=== PATIENT | female | born 1940 | race Caucasian/White ===

== ENCOUNTER → 2016-09-24 | Outpatient (CLI) | payer MEDICARE, BC ==
--- NOTE | 2016-09-24 11:59 | RADRPT ---
PROCEDURE: XR pelvis/right hip. CLINICAL INDICATION: Hip pain TECHNIQUE: AP pelvis/lateral right hip view available for review. COMPARISON: None available FINDINGS: The osseous structures are normal in mineralization, architecture and alignment. No fractures are i dentified. No osseous lesions are identified. The joints are unremarkable. The soft tissues are u nremarkable. There are surgical clips in the pelvis. IMPRESSION: Unremarkable examination RPTAT: HGDB .Edgar Monae MD, MD Date Time Electronically viewed and signed by .Edgar Monae MD, on 09/24/2016 11:58 .B/
--- NOTE | 2016-09-24 12:09 | RADRPT ---
PROCEDURE: XR bilateral knees. CLINICAL INDICATION: Knee pain TECHNIQUE: AP weightbearing, PA weightbearing, lateral weightbearing and sunrise views of each kne e are available for review. COMPARISON: None available FINDINGS: Right knee: There is moderate to severe osteoarthrosis involving the right medial tibial femoral compartment and lateral tibial femoral compartment and mild to moderate osteoarthrosis involving the patellofemoral compartment .This is associated with joint space narrowing, subchondral sclerosis and osteophytosis . Left knee: There is moderate osteoarthrosis involving the left medial tibial femoral compartment and mild oste oarthrosis involving the patellofemoral compartment. This is associated with joint space narrowing, subchondral sclerosis and osteophytosis. There is otherwise normal mineralization, architecture and alignment. No fractures are identified. No osseous lesions are identified. The soft tissues are unremarkable. IMPRESSION: Moderate to severe osteoarthrosis involving the right medial tibial femoral compartment and lateral tibial femoral compartment and mild to moderate osteoarthrosis involving the patellofemoral compartm ent Moderate osteoarthrosis involving the left medial tibial femoral compartment and mild osteoarthrosis involving the patellofemoral compartment. RPTAT: HGDB .Edgar Monae MD, Date Time Electronically viewed and signed by .Edgar Monae MD, on 09/24/2016 12:09 .B/
== END | disposition home or self-care (01) ==
LOC: HKI 11:12
PROVIDERS: ATTEND Orthopaedic Surgery
DX: M17.11 Unilateral primary osteoarthritis, right knee (principal); M25.561 Pain in right knee; F17.200 Nicotine dependence, unspecified, uncomplicated
CPT/HCPCS: 73502; 73564; G0463

== ENCOUNTER → 2016-10-13 | Outpatient (CLI) | END | disposition home or self-care (01) | DX: M25.561 Pain in right knee (principal); M17.11 Unilateral primary osteoarthritis, right knee; I10 Essential (primary) hypertension; M06.9 Rheumatoid arthritis, unspecified | CPT/HCPCS: 77073; G0463 ==

== ENCOUNTER 2016-10-23 11:38 | Inpatient (IN) | payer MEDICARE, BC ==
[2016-10-23] VITALS (32 sets, daily range): BP systolic 102–160; BP diastolic 51–76; PULSE 70–88; RESP 14–20; Ht 149.9 cm; Wt 49.0 kg
[~2016-10-23] VITALS: Ht 149.9 cm; Wt 49.0 kg
[~2016-10-23 11:38] MED LIST: BUPIVACAINE LIPOSOME/PF 266 MG/20 ML VIAL INFIL ONE; CEFAZOLIN 1 GM INJ ONE; CELECOXIB 400 MG PO X1 DOSE PO ONE; EXPAREL NOTE (BUPIVICAINE LIPOSOMAL) XX SCH; LACTATED RINGER'S 1,000 ML IV SCH; PAIN COCKTAIL - VANCOMYCIN IRR ONE; PREGABALIN 300 MG PO X1 PO ONE; SOD CHLORIDE 0.9% IV ONE; SOD CHLORIDE 0.9% IVPB ONE; TRANEXAMIC ACID IV ONE; TRANEXAMIC ACID IVPB ONE; VANCOMYCIN 1 GM/NS 250 ML X1 BEFORE INCISION IVPB ONE; oxyCODONE (CR) 10 MG TAB [oxyCONTIN] X1 DOSE PO ONE; traMADOL 50 MG TAB X 1 DOSE PO ONE
[2016-10-23] MEDS: traMADol 50 MG TAB PO SCH ×2 (12:00→18:00)
--- NOTE | 2016-10-23 15:23 | HPN ---
Date/Time of Note Date/Time of Note DATE: 10/23/16 TIME: 15:23 Interval H&P Admission Note Pt. seen H&P reviewed: No system changes No change from H&P on 10/13/16 by HARRY Koroma MD Oct 23, 2016 15:23
[2016-10-23] MEDS ORDERED: PROPOFOL 20 ML ONE ×3 (15:32→17:25)
[2016-10-23] MEDS ORDERED: LIDOCAINE 2% (SDV) 5 ML INJ ONE (15:32)
[2016-10-23] MEDS ORDERED: ROCURONIUM 50 MG INJ ONE (15:32)
[2016-10-23] MEDS ORDERED: SUCCINYLCHOLINE CHLORIDE 100 MG/5 ML SYG IV ONE (15:32)
[2016-10-23] MEDS ORDERED: FENTAnyl 50 MCG/ML VIAL ONE (15:33)
[2016-10-23] MEDS ORDERED: GABA300C16 PO (15:35)
[2016-10-23] MEDS ORDERED: AMPH20TA2 PO ×2 (15:35)
[2016-10-23] MEDS ORDERED: TRAZ50TA18 PO (15:35)
[2016-10-23] MEDS ORDERED: VALS80TA2 PO (15:35)
[2016-10-23] MEDS ORDERED: MIDAZOLAM 1 MG/ML 2 ML INJ ONE (16:10)
[2016-10-23] MEDS ORDERED: DEXAMETHASONE 4 MG/ML 1 ML INJ ONE (16:21)
[2016-10-23] MEDS ORDERED: ONDANSETRON 4 MG INJ ONE (16:21)
[2016-10-23] MEDS ORDERED: FAMOTIDINE 20 MG INJ ONE (16:21)
[2016-10-23] MEDS ORDERED: GLYCOPYRROLATE 0.4 MG INJ ONE (16:39)
[2016-10-23] MEDS ORDERED: NEOSTIGMINE 3 MG/3 ML SYRINGE ONE (16:39)
[2016-10-23] MEDS ORDERED: LABETALOL HCL 20MG INJ ONE (16:46)
[2016-10-23] MEDS ORDERED: BACITRACIN 50000 UNITS INJ IRR ONE (16:50)
[2016-10-23] MEDS ORDERED: SODIUM CL BACTERIOSTATIC 30 ML INJ ONE (17:13)
[2016-10-23] MEDS ORDERED: VANCOMYCIN 1 GM INJ ONE (17:14)
[2016-10-23] MEDS ORDERED: POLYMYXIN B 500000 UNIT INJ ONE (17:14)
--- NOTE | 2016-10-23 18:03 | OPR ---
Date/Time of Note Date/Time of Note DATE: 10/23/16 TIME: 18:02 Operative Report Free Text/Dictation Dictation # [id number] Procedure Date: Oct 23, 2016 Preoperative Diagnosis Right Knee OA Postoperative Diagnosis Same Operation Performed Right TKA Surgeon: HARRY VILLEGAS MD nursing home assistant: KELSEY NEWELL PA-C Anesthesia: general, spinal Anesthesiologist: CLINT VASQUEZ MD Tourniquet Time: 61 min Estimated Blood Loss: 50 - 100 ml's Specimens Bone and soft tissue Tubes/Drains Hemovac x 1 Complications: None Pt Condition Post Procedure: stable Disposition: PACU HARRY VILLEGAS MD Oct 23, 2016 18:03
--- NOTE | 2016-10-23 18:28 | PN ---
Date/Time of Note Date/Time of Note DATE: 10/23/16 TIME: 18:22 Assessment/Plan Lines/Catheters IV Catheter Type (from Nrsg): Peripheral IV Assessment/Plan Assessment/Plan Stable in PACU, s/p right TKA -continue antibiotics until drains removed -pain meds as needed -ASA/SCDs for DVT prophylaxis -OOB with PT -monitor drain -check AM labs -d/c covington in AM XR of the right knee shows good alignment with no evidence of fracture or dislocation Subjective 24 Hr Interval Summary Stable in PACU. Moving all extremities. Denies pain. Exam/Review of Systems Vital Signs Vitals Vital Signs Date Time Temp Pulse Resp B/P Pulse Ox O2 Delivery O2 Flow Rate FiO2 10/23/16 18:10 99.2 10/23/16 18:02 73 18 149/59 98 Mask 8.0 Exam Free Text/Dictation Hemovac: minimal Dressing dry Incision clean, dry, and intact without redness or drainage Thigh soft 5/5 Quadriceps, Tibialis Anterior, EHL, Gastroc, Soleus, Peroneals Normal sensation Palpable DT/PT, CR <2 sec No distal edema KELSEY NEWELL PA-C Oct 23, 2016 18:27
--- NOTE | 2016-10-23 18:29 | OPR ---
DATE OF OPERATION: 10/23/2016 PREOPERATIVE DIAGNOSIS: Right knee osteoarthritis. POSTOPERATIVE DIAGNOSIS: Right knee osteoarthritis. OPERATION PERFORMED: Right total knee arthroplasty. SURGEON: Harry Hunter MD FILAMENT MAKER: ESTEFANÍA Fajardo COMPONENTS USED: DePuy Attune size 4 narrow femoral component, size 2 tibial baseplate, 8 mm polyet hylene insert, and a 32 patellar button. ANESTHESIA: Spinal plus general endotracheal intubation plus periarticular injection. ANESTHESIOLOGIST: Dr. Amena Neville TOURNIQUET TIME: 61 minutes. ESTIMATED BLOOD LOSS: 50 mL INTRAVENOUS FLUIDS: 2 L of crystalloid. SPECIMENS: Bone and soft tissue. DRAINS: Hemovac x1. COMPLICATIONS: None. DISPOSITION: The patient tolerated the procedure well, was taken to the recovery room in stable con dition. INDICATIONS: The patient is a 76-year-old woman who has had progressive worsening pain in the right knee with radiographic evidence of severe osteoarthritis. She has failed nonsurgical means of treat ment to control her pain including activity modifications, pain medications, intra-articular injecti ons and ambulatory assist devices. Despite these measures, she has had worsening pain, and I felt s he would benefit from a total knee arthroplasty. The risks, benefits, and alternatives of the procedure were explained in detail to the patient. I e xplained the risks of the surgery to include but not be limited to, bleeding and possible need for b lood transfusion; infection; pain; stiffness; neurovascular injury with possible numbness, weakness, and/or paralysis anywhere from the knee down to the toes; fracture; instability; dislocation; wear and/or loosening of the prosthesis and possible need for future revision; blood clots; pulmonary emb olism; and anesthetic complications such as heart attack, stroke, GI bleed, pneumonia, and/or . Ample time was allowed for the patient to ask questions, all of which were addressed and answered. The patient understood the risks involved and wished to proceed. Informed consent was signed prior to the procedure. PROCEDURE: The patient's right knee was initialed with a marking pen in the preoperative area to id entify the correct operative site. The patient was brought to the operating room and transferred fr the [facility] to the operating table where a spinal anesthetic was administered. Silvia garibay was then anesthetized and intubated. A Patel catheter was placed. A timeout was performed to co nfirm that the right leg was the correct operative site. The patient was given 2 g of Ancef within one hour prior to the procedure. A tourniquet was placed on the operative proximal thigh. The oper ative knee and lower extremity were prepped and draped in the usual sterile fashion. The operative lower extremity was elevated and exsanguinated with an Esmarch tourniquet. The proximal thigh tourn iquet was inflated to 300 mmHg. The knee was flexed. A midline incision was made and carried down through the subcutaneous tissue a nd fat with sharp dissection. Limited medial and lateral flaps were raised. A median parapatellar arthrotomy approach was performed. Synovial fluid was normal in color and consistency. The patella was everted and the knee flexed. There were severe tricompartmental osteoarthritic changes noted. A medial release was performed at the joint line to the midcoronal plane. The ACL and PCL and remnan ts of the menisci were excised. The stepped drill was used to open up the femoral canal which was i rrigated and sucked dry. The intramedullary guide lamont was passed up the femur, and the distal cutti ng block was pinned into place for a 6-degree valgus cut, taking 10 mm of bone off distally. The osc illating saw was used to make the cut. The tibia was subluxed anteriorly. The tibial cutoff jig was placed over the center of the talus d istally and over the junction of the medial and middle third of the tibial tubercle proximally. The guide was pinned into place and the oscillating saw was used to make the cut. The tibia was sized. The extension gap was checked and accommodated the 8 mm spacer block with the knee in full extensio n. There was no varus or valgus instability. At this point, the femur was sized with the posterior referencing guide. Two holes were drilled in 3 degrees of external rotation. The two holes were in line with the transepicondylar axis, perpendi cular to Priscila's line, and in line with the tibial cutoff jig brought up with the knee flexed 90 degrees and tensed with 2 lamina spreaders, suggesting the femoral rotation was correct. The four- in-one cutting block was pinned into place. The anterior and posterior cuts and chamfer cuts were m nola with the oscillating saw. The flexion gap was checked and accommodated the 8 mm spacer block at 90 degrees. There was no varus or valgus instability, suggesting the flexion and extension gaps we re now equal. The central box was cut out on the femur. The tibia was drilled and punched in proper rotation. Tri al components were placed into position with a trial insert. The patella was cut from 18 mm down to 12 mm and sized. Three holes were drilled and the trial button placed in position. With all the t rials now in place, the knee was taken through range of motion and came to full extension as evidenc ed by the fact that with the foot on my abdomen and axial loading, there was no tendency for the kne e to flex. The knee was able to be flexed to 125 degrees with good patellar tracking with no latera l tilt or subluxation. At this point, I was satisfied with the overall range of motion, stability, and patellar tracking. The trials were removed. The real components were opened. Two bags of cement were mixed, one with and one without premixed antibiotic. The knee was irrigated with antibiotic saline and sucked dry. Once the cement was in a doughy stage, the real components were cemented into place. The knee was held in full extension, and the patellar component was held with a patellar clamp. All excess cemen t was removed with curettes. As the cement was hardening, the synovial/capsular layer was infiltrat ed with a mixture of 150 mg of 0.5% Bupivacaine, 8 mg of Duramorph, 300 mcg of epinephrine, 30 mg of Toradol, 100 mcg of clonidine, 750 mg of cefuroxime and 86 mL of normal saline, followed by an inje ction of 266 mg of liposomal Bupivacaine. A Hemovac drain was placed in the deep portion of the wound and brought out the anterolateral thigh. Once the cement was completely hardened, the trial liner was removed, and the real insert was open ed. The tourniquet was let down, and there was good hemostasis. The knee was then irrigated with a mixture of Betadine/saline and then antibiotic saline with pulsatile lavage. The real insert was impacted into the tibia and reduced onto to the femur. The arthrotomy was closed with a few interrupted #1 Ethibond in a [id number] fashion, and then closed in a watertight fashion with a running #2 Stratafix suture. Knee flexion was checked against gravity and came to 125 degrees. The subcutaneous layer was irrigated and closed with 2-0 Statafix , and then 3-0 Vicryl and then yuniel on the skin. The wound was covered with an occlusive dressin g, and secured with cast padding and a bias dressing. The drain was secured with 3-0 nylon. The sponge and needle counts were correct at the end of the case. The patient was then awakened, ex tubated, and taken to the recovery room in stable condition. Dictated By: HARRY ESPOSITO/NTS Conf#: [id number] DID#: [id number]
[2016-10-23] MEDS ORDERED: NA PHOSPHATE/BIPHOS 133 ML ENEMA PR PRN (18:30)
[2016-10-23] MEDS ORDERED: oxyCODONE 5 MG TAB PO PRN (18:30)
[2016-10-23] MEDS ORDERED: BISACODYL 10 MG SUPP PR PRN (18:30)
[2016-10-23] MEDS ORDERED: ONDANSETRON 4 MG INJ IV PRN (18:30)
[2016-10-23] MEDS ORDERED: ASPIRIN (EC) 325 MG TAB PO ONE (18:30)
[2016-10-23] MEDS ORDERED: MAGNESIUM HYDROXIDE 30ML CUP PO PRN (18:30)
[2016-10-23] MEDS ORDERED: DIPHENHYDRAMINE 25 MG CAP PO PRN (18:30)
--- NOTE | 2016-10-23 18:44 | RADRPT ---
PROCEDURE: Right knee x-ray CLINICAL INDICATION: Postop evaluation. TECHNIQUE: Two views of the right knee were obtained. COMPARISON: AP view both knees 10/22/2016. FINDINGS: The patient is status post total knee replacement . There are postsurgical changes in the subcutane ous soft tissues. Surgical drain is noted in the patellofemoral joint space. Skin yuniel are pres ent over the ventral surface of the knee. There is normal mineralization. No acute fracture or dislocation is seen. IMPRESSION: Postsurgical changes of the knee status post right knee replacement. RPTAT:AAJJ Physician Cotrez Date Time Electronically viewed and signed by Physician Cortez on 10/23/2016 18:43 DINORAH/
[2016-10-23 18:55] LABS: HEMATOCRIT 35.2 % (37.0-47.0)
[2016-10-23] MEDS: DEXTROAMPHETAMINE XX SCH (19:30)
[2016-10-23] MEDS: AMPHETAMINE XX SCH (19:30)
[2016-10-23] MEDS: [UNRECOGNIZED DRUG - OTHER] XX SCH (19:30)
[2016-10-23 19:31] LABS: CALCIUM 8.5 mg/dl (8.4-10.2); CREATININE 0.74 mg/dl (0.44-1.00)
[2016-10-23] MEDS ORDERED: TRANEXAMIC ACID IVPB ONE (21:30)
[2016-10-23] MEDS ORDERED: SOD CHLORIDE 0.9% IVPB ONE (21:30)
[2016-10-23] MEDS: DOCUSATE SODIUM 100 MG CAP PO SCH (22:14)
[2016-10-23] MEDS: PREGABALIN 50 MG CAP PO SCH (22:14)
[2016-10-23] MEDS: VANCOMYCIN 1 GM (PMX) 250 ML IVPB SCH (22:14)
[2016-10-23] MEDS: LACTATED RINGER'S 1,000 ML IV SCH (22:14)
[2016-10-23] MEDS: traZODone 50 MG TAB PO SCH (22:14)
[2016-10-24] MEDS: ACETAMINOPHEN 1000MG/100ML IV 100 ML IVPB SCH ×4 (00:23→17:34)
[2016-10-24] MEDS ORDERED: SOD CHLORIDE 0.9% IVPB ONE (00:30)
[2016-10-24] MEDS ORDERED: TRANEXAMIC ACID IVPB ONE (00:30)
[2016-10-24] MEDS: LACTATED RINGER'S 1,000 ML IV SCH ×3 (02:01→18:01)
[2016-10-24] MEDS: [UNRECOGNIZED DRUG - OTHER] XX SCH (03:30)
[2016-10-24] MEDS: AMPHETAMINE XX SCH (03:30)
[2016-10-24] MEDS: DEXTROAMPHETAMINE XX SCH (03:30)
[2016-10-24] MEDS: oxyCODONE 5 MG TAB PO PRN ×2 (03:43→09:22)
[2016-10-24 05:03] LABS: HEMATOCRIT 31.2 % (37.0-47.0); HEMOGLOBIN 10.1 g/dl (12.0-16.0)
[2016-10-24 05:15] LABS: POTASSIUM 4.1 mmol/L (3.5-5.1)
[2016-10-24 05:17] LABS: CREATININE 0.77 mg/dl (0.44-1.00)
[2016-10-24 05:18] LABS: CALCIUM 8.3 mg/dl (8.4-10.2)
[2016-10-24] MEDS: traMADol 50 MG TAB PO SCH ×5 (06:20→23:28)
[2016-10-24] MEDS: PANTOPRAZOLE (EC) 40 MG TAB PO SCH ×2 (06:20→17:34)
[2016-10-24 07:54] VITALS: BP 131/63; RESP 20
[2016-10-24] MEDS ORDERED: AMPHET ASP AMPHET D AMPHET PO SCH (09:00)
--- NOTE | 2016-10-24 09:18 | PN ---
Date/Time of Note Date/Time of Note DATE: 10/24/16 TIME: 09:16 Assessment/Plan Lines/Catheters IV Catheter Type (from Nrsg): Peripheral IV Patel in Place (from Nrsg): Yes Assessment/Plan Assessment/Plan Stable POD #1, s/p right TKA -continue abx until drains removed -pain meds as needed -ASA/SCDs for DVT prophylaxis -OOB with PT -monitor drain -check AM labs -d/c planning. Will plan to go to [facility] upon discharge Subjective 24 Hr Interval Summary No acute overnight events. Having slight cough and throat pain, likely from ET tube. Denies any knee pain. VSS, afebrile. Would like to go to [facility] upon discharge. Exam/Review of Systems Vital Signs Vitals Vital Signs Date Time Temp Pulse Resp B/P Pulse Ox O2 Delivery O2 Flow Rate FiO2 10/24/16 07:54 98.7 69 20 131/63 97 10/23/16 22:15 Nasal Cannula 2.0 Intake and Output 10/23/16 10/23/16 10/24/16 15:00 23:00 07:00 Intake Total 2000 ml 1859.8 ml Output Total 530 ml 1100 ml Balance 1470 ml 759.8 ml Exam Free Text/Dictation Hemovac: 330cc Dressing dry Incision clean, dry, and intact without redness or drainage Thigh soft 5/5 Quadriceps, Tibialis Anterior, EHL, Gastroc, Soleus, Peroneals Normal sensation Palpable DT/PT, CR <2 sec No distal edema Results Result Diagram: 10/24/1641910/24/16419 KELSEY NEWELL PA-C Oct 24, 2016 09:18
[2016-10-24] MEDS: ASPIRIN (EC) 325 MG TAB PO SCH ×2 (09:22→20:24)
[2016-10-24] MEDS: CELECOXIB 200 MG CAP PO SCH (09:23)
[2016-10-24] MEDS: DOCUSATE SODIUM 100 MG CAP PO SCH ×2 (09:23→20:24)
[2016-10-24] MEDS: PREGABALIN 50 MG CAP PO SCH ×2 (09:23→20:24)
[2016-10-24] MEDS: VANCOMYCIN 1 GM (PMX) 250 ML IVPB SCH (09:24)
[2016-10-24] MEDS: VALSARTAN 80 MG TAB PO SCH (09:24)
[2016-10-24] MEDS ORDERED: VANCOMYCIN IV PER PHARMACY XX SCH (09:30)
[2016-10-24 10:08] LABS: ADD UMIC NO; URINE BILIRUBIN (Dip) NEGATIVE (NEGATIVE); URINE BLOOD (Dip) NEGATIVE (NEGATIVE); URINE COLOR LT. YELLOW (YELLOW); URINE GLUCOSE (Dip) NEGATIVE (NEGATIVE); URINE KETONES (Dip) NEGATIVE (NEGATIVE); URINE LEUKOCYTE ESTERASE (Dip) NEGATIVE (NEGATIVE); URINE NITRITE (Dip) NEGATIVE (NEGATIVE); URINE TOTAL PROTEIN (Dip) NEGATIVE (NEGATIVE); URINE UROBILINOGEN (Dip) 0.2 E.U./dL (0.1-1.0)
--- NOTE | 2016-10-24 11:03 | CONS ---
DATE OF ADMISSION: 10/23/2016 DATE OF CONSULTATION: 10/24/2016 TYPE OF CONSULTATION: Postoperative medical Thank you very much for allowing me to evaluate this 76-year-old female who just underwent right kne e arthroplasty. HISTORICAL EVENTS: As you well know, this patient has had progressive disabling pain involving the right knee and elected to proceed with surgery. On the orthopedic floor, she is comfortable without cough, wheezing, shortness of breath, nausea, vomiting, abdominal or chest pain. PAST MEDICAL HISTORY: Includes: 1. Hypertension. 2. Hyperlipidemia. 3. Chronic obstructive pulmonary disease. 4. History of low back pain. 5. Depression. 6. History of attention-deficit disorder. 7. Prior hysterectomy. 8. Prior bladder suspension. 9. History of right rotator cuff repair. 10. Prior right knee arthroscopic surgeries. MEDICATIONS: 1. Diovan 80. 2. Trazodone 50 mg per day. 3. Amphetamine 40 in the morning and 20 at night. 4. Gabapentin 300 t.i.d. 5. Calcium with D. 6. B12. 7. Vitamin C. ALLERGIES: INCLUDE PENICILLIN. SOCIAL HISTORY: She does drink alcohol. Prior smoker, quit 1 month ago. FAMILY HISTORY: Positive for gastric carcinoma, coronary disease, suicide, hypertension. PHYSICAL EXAMINATION: GENERAL: [place] female in no acute distress. VITAL SIGNS: Blood pressure 122/80, pulse 70, respirations were 20. She was afebrile. EYES: Extraocular muscles were full. Nose, mouth and throat were normal. NECK: Supple. There was no jugular venous distention, thyroid enlargement or adenopathy. Carotids 2+. LUNGS: Clear, reduced breath sounds. HEART: Rhythm regular, no murmur. No third or fourth sound. ABDOMEN: Nontender. Liver and spleen were not palpable. No masses or tenderness were noted. EXTREMITIES: No edema, no calf tenderness. IMPRESSION: 1. Stable postoperative right knee. 2. History of chronic obstructive pulmonary disease. We will begin bronchodilators and aggressive mobilization. 3. We will evaluate daily for signs and symptoms of thromboembolic disease in spite of appropriate DVT prophylaxis. 4. Hypertension, to continue her ARB. Dictated By: MELISSA REEDER/NTS Conf#: [id number] DID#: [id number]
--- NOTE | 2016-10-24 11:15 | PREOPHP ---
DATE OF ADMISSION: 10/23/2016 DATE OF SURGERY: 10/23/2016 CHIEF COMPLAINT: Preoperative evaluation for right knee arthroplasty to be done by Dr. Harry Villegas at [facility] 10/23/2016. HISTORY OF PRESENT ILLNESS: Briefly, this is a 76-year-old white female with past medical history s ignificant for hypertension, high cholesterol, obstructive lung disease and DJD, who has had progres sive right knee symptoms for greater than 6 months. She has failed conservative therapy and total k nee replacement was recommended. She was referred to Dr. Harry Villegsa, who concurred. She is schedu led for the above-mentioned procedure at [facility] 10/23/2016. REVIEW OF SYSTEMS: CONSTITUTIONAL: Denies fever, chills, night sweats or weight change. HEENT: No headache, visual changes. NECK: No mass or stiffness. CARDIAC: No anginal chest pain, palpitations or congestive heart failure symptoms. LUNGS: Reports chronic cough. No wheezing, no shortness of breath, change from baseline. GASTROINTESTINAL: No nausea, vomiting, diarrhea, constipation, or abdominal pain. EXTREMITIES: No edema. PAST MEDICAL HISTORY: 1. DJD. A. Bilateral knees with right recently increased, scheduled for TKR. B. Low back pain, status post multiple epidurals followed by Dr. Joseluis Mendoza requiring intermitt ent narcotics. 2. Hypertension. 3. Neuropsych. A. Depression. B. ADD. 4. High cholesterol. 5. Obstructive lung disease. 6. Status post tonsillectomy 7. Status post appendectomy. 8. Status post hysterectomy. 9. Status post bladder suspension. 10. Status post right rotator cuff tear repair by . 11. Status post 3 right knee arthroscopies, also by Dr. Alberts . 12. Status post right first toe bunion repair. MEDICATIONS: 1. Diovan 80 mg 1 pill daily. 2. Trazodone 50 mg at night. 3. Amphetamine salts 40 mg a.m. and 20 mg p.m. 4. Gabapentin 300 mg t.i.d. p.r.n. 5. Calcium plus vitamin D. 6. Vitamin C. 7. Vitamin B12. ALLERGIES: PENICILLIN WITH AN ANAPHYLACTIC REACTION. There is no personal or family history of unt oward anesthetic reaction. SOCIAL HISTORY: Patient is a social drinker at about 7-10 drinks a week. She has smoked cigarettes , approximately a half pack daily for over 60 years. She quit 1 month ago. FAMILY HISTORY: Her mother at age 81 with gastric carcinoma. Father in his 60s with preet nary artery disease. She has one sister who committed suicide at age 39 and one who is alive at age 72 with arthritis and orthopedic issues. She has 1 son, age 52, with hypertension and 1 daughter, age 55, who is alive and well. PHYSICAL EXAMINATION: VITAL SIGNS: Temperature is 98.1, pulse is 75, respirations 16, blood pressure 150/90, height is 4 foot 11 inches, weight is 110 pounds. GENERAL APPEARANCE: She is a well-developed, well-nourished white female looking younger than state d age in no acute distress. HEENT: Pupils are equal, round, reactive to light and accommodation. Extraocular movements are int act. HEAD: Normocephalic, atraumatic. Conjunctivae are pink. Sclerae are anicteric. Mucous membranes were moist. NECK: Supple. Full range of motion. No lymph nodes palpated. No bruits auscultated. No thyromeg myriam palpated. Jugular venous pressure is normal. CARDIAC: Regular rate and rhythm. S1, S2 are normal. There is no S3 or S4. LUNGS: Clear to auscultation anteriorly. Posteriorly there are prolonged expiratory breath sounds without ricki wheezing. There are no rales auscultated. ABDOMEN: Soft, nontender, nondistended. Normoactive bowel sounds. No organomegaly palpated. EXTREMITIES: No edema. NEUROLOGICAL: Exam is nonfocal. LABORATORY DATA: EKG shows a rate of 74, normal sinus rhythm, no acute disease, no change from base line. Chest x-ray reveals no acute cardiopulmonary disease. INR is 0.89. PTT is 24.1, white count 8.6. Hemoglobin 14.4, hematocrit 41.7, platelets 279. Urinalysis negative. Sodium 138, potassium 4.3, c hloride 102, bicarbonate 29, BUN 18, creatinine 0.7. Glucose is 97. ASSESSMENT AND PLAN: 1. Bilateral knee DJD with right greater than left, scheduled for a total knee replacement. The pa tient appears to be optimized medically. She has been advised to continue her outpatient medication s perioperatively. 2. Chronic low back pain on periodic gabapentin status post epidurals followed by Dr. Mendoza. 3. Hypertension. 4. Depression. 5. Attention deficit disorder. 6. High cholesterol. 7. Mild obstructive lung disease. 8. Status post tonsillectomy. 9. Status post appendectomy. 10. Status post CATHY. 11. Status post bladder suspension. 12. Status post right rotator cuff tear repair. 13. Status post 3 right knee arthroscopies. 14. Status post right first toe bunion repair. SANTOS WALLACE DICTATED FOR CLARKE VILLEGAS MD Dictated By: HARRY VILLEGAS MD EZ/NTS Conf#: [id number] DID#: [id number]
[2016-10-24] MEDS: FLUTICASONE 0.05% 16 GM NAS SPRAY NASAL SCH ×2 (12:37→20:24)
[2016-10-24] MEDS: BUDESONIDE (NEB) 0.5MG/2ML AMP HHN SCH ×2 (13:34→20:00)
[2016-10-24] MEDS ORDERED: SUMATRIPTAN 50 MG TAB PO ONE (14:00)
--- NOTE | 2016-10-24 16:21 | PDOCDIS ---
Discharge Instructions DIAGNOSIS Discharge Diagnosis: s/p right TKA CONDITION Patient Condition: Good HOME CARE INSTRUCTIONS: Diet Instructions: Regular ACTIVITY: Activity Restrictions: Slowly Increase Activity Rest between Activity Avoid heavy lifting Do not operate Machinery Do not operate Power Tool Avoid Heavy Housework Keep Limb Elevated Bathing Restrictions: Shower FOLLOW UP/APPOINTMENTS Appointments follow up in the office on 11/03/16 OTHER ORDERS: Other Orders: S/P TKA Physical Therapy: Three times per week at home x 2 weeks Daily in Rehab/SNF WB STATUS: WBAT 1. Strengthening exercises for both upper and un-operated lower extremities. 2. Gait training with front wheeled walker 3. Active range of motion exercises to operative knee. 4. When not working on knee range of motion exercises, distal towel roll under operative ankle/distal calf to promote full extension. 5. DO NOT PUT ANYTHING BEHIND OPERATIVE KNEE!!! 6. Quadriceps and hamstring strengthening. 7. May switch to cane in contra lateral hand 6 weeks after surgery. 8. Physical Therapy can open case if nursing is not available. 9. Use Ice Machine as instructed from date of surgery while at rest 3X/day. 10. Patient requires mobile SCDs to reduce risk of developing DVT following TKA. Patient will use the mobile SCDs for 30 days postoperatively. Bathing assistance by home health aide twice weekly if Medicare patient. Occupational Therapy: Evaluation for assistive devices and ADL training. Wound Care: Keep incision dry & covered with Tegaderm until first visit with Dr. Hunter Anticoagulation Orders: Enteric Coated Aspirin 325 mg po bid x 6 weeks from date of surgery Follow-up:Call for an appointment with Dr. Hunter in 1 week after discharged from hospital at DME Orders: BETSY, 3-in-1 Commode, Polar ice machine, Mobile SCDs KELSEY NEWELL PA-C Oct 24, 2016 16:21
[2016-10-24] MEDS ORDERED: PANT40TA4 PO (16:23)
[2016-10-24] MEDS ORDERED: TRAM50TA2 PO (16:23)
[2016-10-24] MEDS ORDERED: PREG50CA PO (16:23)
[2016-10-24] MEDS ORDERED: ASPI325T32 PO (16:23)
[2016-10-24] MEDS ORDERED: HYDR-905 PO (16:23)
[2016-10-24 19:29] VITALS: BP 142/66; RESP 19
[2016-10-24] MEDS: traZODone 50 MG TAB PO SCH (20:24)
[2016-10-25] MEDS: LACTATED RINGER'S 1,000 ML IV SCH ×3 (02:01→18:01)
[2016-10-25 05:19] LABS: HEMATOCRIT 30.5 % (37.0-47.0); HEMOGLOBIN 9.9 g/dl (12.0-16.0)
[2016-10-25 05:31] LABS: POTASSIUM 4.1 mmol/L (3.5-5.1)
[2016-10-25 05:34] LABS: CREATININE 0.67 mg/dl (0.44-1.00)
[2016-10-25 05:35] LABS: CALCIUM 8.1 mg/dl (8.4-10.2)
[2016-10-25] MEDS: traMADol 50 MG TAB PO SCH ×4 (06:00→23:14)
[2016-10-25] MEDS: PANTOPRAZOLE (EC) 40 MG TAB PO SCH ×2 (06:36→18:01)
[2016-10-25] MEDS: VALSARTAN 80 MG TAB PO SCH (06:36)
[2016-10-25] MEDS: HYDROmorphONE 1 MG/ML SYG IV PRN ×4 (06:40→22:26)
[2016-10-25 08:10] VITALS: BP 162/74; RESP 20
[2016-10-25] MEDS: CELECOXIB 200 MG CAP PO SCH (08:41)
[2016-10-25] MEDS: ASPIRIN (EC) 325 MG TAB PO SCH ×2 (08:41→20:41)
[2016-10-25] MEDS: DOCUSATE SODIUM 100 MG CAP PO SCH ×2 (08:41→20:41)
[2016-10-25] MEDS: PREGABALIN 50 MG CAP PO SCH ×2 (08:41→20:47)
[2016-10-25] MEDS: FLUTICASONE 0.05% 16 GM NAS SPRAY NASAL SCH ×2 (08:42→20:42)
[2016-10-25] MEDS: oxyCODONE 5 MG TAB PO PRN ×3 (08:45→18:01)
[2016-10-25] MEDS ORDERED: VANCOMYCIN 750 MG in SOD CHLORIDE 0.9% 150 ML IVPB SCH (09:00)
--- NOTE | 2016-10-25 10:05 | PN ---
Date/Time of Note Date/Time of Note DATE: 10/25/16 TIME: 10:04 Assessment/Plan Lines/Catheters IV Catheter Type (from Nrsg): Saline Lock Patel in Place (from Nrsg): Yes Assessment/Plan Assessment/Plan Stable POD #2, s/p right TKA -pain meds as needed -ASA/SCDs for DVT prophylaxis -drain removed -OOB with PT -dressing changed -check AM labs -will likely go to [facility] tomorrow Subjective 24 Hr Interval Summary No acute overnight events. Denies significant knee pain. Progressing nicely with PT. VSS, afebrile. Will plan to transfer to [facility] tomorrow. Exam/Review of Systems Vital Signs Vitals Vital Signs Date Time Temp Pulse Resp B/P Pulse Ox O2 Delivery O2 Flow Rate FiO2 10/25/16 08:10 98.5 70 20 162/74 95 10/25/16 00:56 2.0 10/24/16 20:03 Nasal Cannula 10/24/16 13:34 21 Intake and Output 10/24/16 10/24/16 10/25/16 15:00 23:00 07:00 Intake Total 500 ml 1725 ml 800 ml Output Total 1450 ml 1530 ml Balance 500 ml 275 ml -730 ml Exam Free Text/Dictation Hemovac: 280cc Dressing dry Incision clean, dry, and intact without redness or drainage Thigh soft 5/5 Quadriceps, Tibialis Anterior, EHL, Gastroc, Soleus, Peroneals Normal sensation Palpable DT/PT, CR <2 sec No distal edema Results Result Diagram: 10/25/16 0425 10/25/16 0425 KELSEY NEWELL PA-C Oct 25, 2016 10:05
--- NOTE | 2016-10-25 11:07 | CONS ---
Date/Time of Note Date/Time of Note DATE: 10/25/16 TIME: 11:05 Assessment/Plan Assessment/Plan Additional Assessment/Plan 1. Stable post op right knee repelacment. 2. COPD, asx, inhalers were ordered 3. BP inc, will add low dose norvasc. Consultation Date/Type/Reason Admit Date/Time Oct 23, 2016 at 12:28 Initial Consult Date Detailed Summary Respiratory: No cough, No shortness of breath Cardiovascular: No chest pain Gastrointestinal: no complaints Genitourinary: no complaints Musculoskeletal: bone/joint pain (mild right knee pain) Exam/Review of Systems Vital Signs Vitals Vital Signs Date Time Temp Pulse Resp B/P Pulse Ox O2 Delivery O2 Flow Rate FiO2 10/25/16 08:10 98.5 70 20 162/74 95 10/25/16 00:56 2.0 10/24/16 20:03 Nasal Cannula 10/24/16 13:34 21 Intake and Output 10/24/16 10/24/16 10/25/16 15:00 23:00 07:00 Intake Total 500 ml 1725 ml 800 ml Output Total 1450 ml 1530 ml Balance 500 ml 275 ml -730 ml Exam Neck: No jvd Respiratory: clear to auscultation Cardiovascular: regular rate and rhythm Gastrointestinal: soft Extremities: No edema (and no calf tend) Results Result Diagram: 10/25/16 0425 10/25/16 0425 Results 24 hrs Laboratory Tests Test 10/25/16 04:25 Hemoglobin 9.9 L Hematocrit 30.5 L Sodium Level 138 Potassium Level 4.1 Chloride Level 105 Carbon Dioxide Level 30 Anion Gap 7 L Blood Urea Nitrogen 17 Creatinine 0.67 Glucose Level 100 Calcium Level 8.1 L Medications Medications Current Medications Trazodone HCl (Desyrel) 50 mg QHS PO Last administered on 10/24/16 20:24; Admin Dose 50 MG; Start 10/23/16 at 21:00 Valsartan 80 mg 80 mg DAILY PO Last administered on 10/25/16 06:36; Admin Dose 80 MG; Start 10/24/16 at 09:00 Lactated Ringer's (Lr) 1,000 ml @ 125 mls/hr Q8H IV Last administered on 12:38; Admin Dose 125 MLS/HR; Start 10/23/16 at 18:01 Celecoxib (Celebrex) 200 mg DAILY PO Last administered on 10/25/16 08:41; Admin Dose 200 MG; Start 10/24/16 at 09:00 Tramadol HCl (Ultram) 50 mg Q6 PO Last administered on 10/24/16 23:28; Admin Dose 50 MG; Start 10/23/16 at 12:00; Stop 10/26/16 at 11:59 Oxycodone HCl (Roxicodone) 5 mg Q4H PRN PO PAIN LEVEL 1-3; Start 10/23/16 at 18 :30 Oxycodone HCl (Roxicodone) 10 mg Q4H PRN PO PAIN LEVEL 4-7 Last administered on 10/25/16 08:45; Admin Dose 10 MG; Start 10/23/16 at 18:30 Hydromorphone HCl (Dilaudid) 1 mg Q3H PRN IV PAIN LEVEL 8-10 Last administered on 10/25/16 10:47; Admin Dose 1 MG; Start 10/23/16 at 18:30 Ondansetron HCl (Zofran Inj) 4 mg Q6H PRN IV NAUSEA AND/OR VOMITING; Start at 18:30 Bisacodyl (Dulcolax Supp) 10 mg Q12H PRN [place] CONSTIPATION; Start 10/23/16 at 18: 30 Magnesium Hydroxide (Milk Of Mag) 30 ml BID PRN PO CONSTIPATION; Start at 18:30 Sodium Biphosphate/ Sodium Phosphate (Fleet Enema) 133 ml DAILY PRN [place] CONSTIPATION; Start 10/23/16 at 18:30 Docusate Sodium (Colace) 100 mg BID PO Last administered on 10/25/16 08:41; Admin Dose 100 MG; Start 10/23/16 at 21:00 Diphenhydramine HCl (Benadryl) 25 mg Q6H PRN PO PRURITUS; Start 10/23/16 at 18: 30 Aspirin (Ecotrin) 325 mg BID PO Last administered on 10/25/16 08:41; Admin Dose 325 MG; Start 10/24/16 at 09:00 Pantoprazole (Protonix Tab) 40 mg BID@18 PO Last administered on 10/25/16 06 :36; Admin Dose 40 MG; Start 10/24/16 at 06:00 Pregabalin (Lyrica) 50 mg BID PO Last administered on 10/25/16 08:41; Admin Dose 50 MG; Start 10/23/16 at 21:00 Fluticasone Propionate (Flonase 0.05% Nasal) 1 spray BID NASAL Last administered on 10/25/16 08:42; Admin Dose 1 SPRAY; Start 10/24/16 at 11:00 MELISSA MONK MD Oct 25, 2016 11:07
[2016-10-25] MEDS: AMLODIPINE 2.5 MG TAB PO SCH ×2 (11:56→20:42)
[2016-10-25] MEDS: BUDESONIDE (NEB) 0.5MG/2ML AMP HHN SCH ×2 (14:56→20:13)
[2016-10-25] MEDS: traZODone 50 MG TAB PO SCH (20:42)
[2016-10-25 20:45] VITALS: BP 151/70; RESP 18
[2016-10-25] MEDS: NACL 0.9% 3 ML SYG IV SCH (20:50)
[2016-10-25] MEDS ORDERED: SPECIAL NON-STANDARD MEDICATION PO SCH (21:20)
[2016-10-25] MEDS ORDERED: ZOLPIDEM 5 MG TAB PO SCH (21:30)
[2016-10-25] MEDS: TEMAZEPAM 7.5 MG CAP PO SCH (23:15)
[2016-10-25 23:20] VITALS: BP 143/72; RESP 17
[2016-10-26] MEDS: LACTATED RINGER'S 1,000 ML IV SCH ×2 (02:01→10:01)
[2016-10-26] MEDS: HYDROmorphONE 1 MG/ML SYG IV PRN ×2 (04:45→10:42)
[2016-10-26 05:12] LABS: HEMOGLOBIN 10.4 g/dl (12.0-16.0)
[2016-10-26 05:31] LABS: POTASSIUM 3.9 mmol/L (3.5-5.1)
[2016-10-26 05:34] LABS: CREATININE 0.59 mg/dl (0.44-1.00)
[2016-10-26 05:35] LABS: CALCIUM 8.5 mg/dl (8.4-10.2)
[2016-10-26] MEDS: PANTOPRAZOLE (EC) 40 MG TAB PO SCH ×2 (06:45→17:19)
[2016-10-26] MEDS: traMADol 50 MG TAB PO SCH (06:45)
[2016-10-26] MEDS: oxyCODONE 5 MG TAB PO PRN ×2 (07:30→11:47)
[2016-10-26 07:56] VITALS: BP 178/80; RESP 20
[2016-10-26 08:00] VITALS: BP 128/82; PULSE 78
[2016-10-26] MEDS: ASPIRIN (EC) 325 MG TAB PO SCH ×2 (08:22→20:34)
[2016-10-26] MEDS: PREGABALIN 50 MG CAP PO SCH ×2 (08:22→20:34)
[2016-10-26] MEDS: CELECOXIB 200 MG CAP PO SCH (08:24)
[2016-10-26] MEDS: DOCUSATE SODIUM 100 MG CAP PO SCH ×2 (08:24→20:34)
[2016-10-26] MEDS: AMLODIPINE 2.5 MG TAB PO SCH ×2 (08:24→20:34)
[2016-10-26] MEDS: FLUTICASONE 0.05% 16 GM NAS SPRAY NASAL SCH ×2 (08:24→20:37)
[2016-10-26] MEDS: VALSARTAN 80 MG TAB PO SCH (08:24)
[2016-10-26] MEDS: BUDESONIDE (NEB) 0.5MG/2ML AMP HHN SCH ×2 (08:53→21:36)
--- NOTE | 2016-10-26 10:21 | PN ---
Date/Time of Note Date/Time of Note DATE: 10/26/16 TIME: 10:20 Assessment/Plan Lines/Catheters IV Catheter Type (from Nrsg): Saline Lock Patel in Place (from Nrsg): Yes Assessment/Plan Assessment/Plan Stable POD #3, s/p right TKA -pain meds as needed -ASA/SCDs for DVT prophylaxis -OOB with PT -dressing changed -transfer to [facility] -follow up in the office in 1 week Subjective 24 Hr Interval Summary No acute overnight events. Having mild pain to right knee after PT. VSS, afebrile. Stable for transfer to [facility] today. Exam/Review of Systems Vital Signs Vitals Vital Signs Date Time Temp Pulse Resp B/P Pulse Ox O2 Delivery O2 Flow Rate FiO2 10/26/16 08:54 20 91 21 10/26/16 08:00 78 128/82 10/26/16 07:56 99.7 10/25/16 20:13 2.0 10/25/16 20:13 Nasal Cannula Intake and Output 10/25/16 10/25/16 10/26/16 15:00 23:00 07:00 Intake Total 1050 ml 400 ml Output Total 1200 ml 800 ml Balance -150 ml -400 ml Exam Free Text/Dictation Dressing dry Incision clean, dry, and intact without redness or drainage Thigh soft 5/5 Quadriceps, Tibialis Anterior, EHL, Gastroc, Soleus, Peroneals Normal sensation Palpable DT/PT, CR <2 sec No distal edema Results Result Diagram: 10/26/16 0436 10/26/16 0436 KELSEY NEWELL PA-C Oct 26, 2016 10:21
--- NOTE | 2016-10-26 11:35 | CONS ---
Date/Time of Note Date/Time of Note DATE: 10/26/16 TIME: 11:31 Assessment/Plan Assessment/Plan Additional Assessment/Plan 1. Doing well post op right knee replacement. 2. Low grade temp and abnl lung exam, cxr ordered and bronchodilators, abx ordered 3. Still requiring parenteral narcotics 4. Underlyin copd. 5. Would like to observe 1 more day Consultation Date/Type/Reason Admit Date/Time Oct 23, 2016 at 12:28 Detailed Summary Respiratory: cough (may have inc a bit since admit and sputum is yellow) Cardiovascular: No chest pain Gastrointestinal: no complaints Genitourinary: no complaints Musculoskeletal: bone/joint pain (moderate right knee pain requiring parenteral narcotics) Exam/Review of Systems Vital Signs Vitals Vital Signs Date Time Temp Pulse Resp B/P Pulse Ox O2 Delivery O2 Flow Rate FiO2 10/26/16 08:54 20 91 21 10/26/16 08:00 78 128/82 10/26/16 07:56 99.7 10/25/16 20:13 2.0 10/25/16 20:13 Nasal Cannula Intake and Output 10/25/16 10/25/16 10/26/16 14:59 22:59 06:59 Intake Total 1050 ml 400 ml Output Total 1200 ml 800 ml Balance -150 ml -400 ml Exam Neck: No jvd Respiratory: diminished breath sounds (few rhonchi bilat) Cardiovascular: regular rate and rhythm Gastrointestinal: soft Extremities: No edema (and no calf tend) Results Result Diagram: 10/26/16 0436 10/26/16 0436 Results 24 hrs Laboratory Tests Test 10/26/16 04:36 Hemoglobin 10.4 L Hematocrit 32.0 L Sodium Level 136 Potassium Level 3.9 Chloride Level 103 Carbon Dioxide Level 30 Anion Gap 7 L Blood Urea Nitrogen 13 Creatinine 0.59 Glucose Level 112 Calcium Level 8.5 Medications Medications Current Medications Trazodone HCl (Desyrel) 50 mg QHS PO Last administered on 10/25/16 20:42; Admin Dose 50 MG; Start 10/23/16 at 21:00 Valsartan 80 mg 80 mg DAILY PO Last administered on 10/26/16 08:24; Admin Dose 80 MG; Start 10/24/16 at 09:00 Lactated Ringer's (Lr) 1,000 ml @ 125 mls/hr Q8H IV Last administered on 12:38; Admin Dose 125 MLS/HR; Start 10/23/16 at 18:01 Celecoxib (Celebrex) 200 mg DAILY PO Last administered on 10/26/16 08:24; Admin Dose 200 MG; Start 10/24/16 at 09:00 Tramadol HCl (Ultram) 50 mg Q6 PO Last administered on 10/26/16 06:45; Admin Dose 50 MG; Start 10/23/16 at 12:00; Stop 10/26/16 at 11:59 Oxycodone HCl (Roxicodone) 5 mg Q4H PRN PO PAIN LEVEL 1-3; Start 10/23/16 at 18 :30 Oxycodone HCl (Roxicodone) 10 mg Q4H PRN PO PAIN LEVEL 4-7 Last administered on 10/26/16 07:30; Admin Dose 10 MG; Start 10/23/16 at 18:30 Hydromorphone HCl (Dilaudid) 1 mg Q3H PRN IV PAIN LEVEL 8-10 Last administered on 10/26/16 10:42; Admin Dose 1 MG; Start 10/23/16 at 18:30 Ondansetron HCl (Zofran Inj) 4 mg Q6H PRN IV NAUSEA AND/OR VOMITING; Start at 18:30 Bisacodyl (Dulcolax Supp) 10 mg Q12H PRN [place] CONSTIPATION; Start 10/23/16 at 18: 30 Magnesium Hydroxide (Milk Of Mag) 30 ml BID PRN PO CONSTIPATION; Start at 18:30 Sodium Biphosphate/ Sodium Phosphate (Fleet Enema) 133 ml DAILY PRN [place] CONSTIPATION; Start 10/23/16 at 18:30 Docusate Sodium (Colace) 100 mg BID PO Last administered on 10/26/16 08:24; Admin Dose 100 MG; Start 10/23/16 at 21:00 Diphenhydramine HCl (Benadryl) 25 mg Q6H PRN PO PRURITUS; Start 10/23/16 at 18: 30 Aspirin (Ecotrin) 325 mg BID PO Last administered on 10/26/16 08:22; Admin Dose 325 MG; Start 10/24/16 at 09:00 Pantoprazole (Protonix Tab) 40 mg BID@06,18 PO Last administered on 10/26/16 06 :45; Admin Dose 40 MG; Start 10/24/16 at 06:00 Pregabalin (Lyrica) 50 mg BID PO Last administered on 10/26/16 08:22; Admin Dose 50 MG; Start 10/23/16 at 21:00 Fluticasone Propionate (Flonase 0.05% Nasal) 1 spray BID NASAL Last administered on 10/26/16 08:24; Admin Dose 1 SPRAY; Start 10/24/16 at 11:00 Amlodipine Besylate (Norvasc) 2.5 mg BID PO Last administered on 10/25/16 20:42 ; Admin Dose 2.5 MG; Start 10/25/16 at 11:30 Temazepam (Restoril) 7.5 mg HS PO Last administered on 10/25/16 23:15; Admin Dose 7.5 MG; Start 10/25/16 at 22:30 MELISSA MONK MD Oct 26, 2016 11:35
[2016-10-26] MEDS ORDERED: LEVOFLOXACIN 500 MG TAB PO ONE (12:00)
[2016-10-26] MEDS: ALBUTEROL 0.083% (NEB) 2.5 MG/3 ML AMP HHN SCH ×3 (12:41→21:31)
[2016-10-26] MEDS ORDERED: HYDROCODONE/APAP (7.5/325) TAB PO PRN (13:00)
[2016-10-26] MEDS: HYDROCODONE/APAP (7.5/325) TAB PO PRN ×3 (13:04→21:36)
[2016-10-26] MEDS: GUAIFENESIN LA 600 MG TABSR PO SCH ×2 (13:04→20:34)
--- NOTE | 2016-10-26 13:14 | RADRPT ---
PROCEDURE: XR Chest PA and Lateral CLINICAL INDICATION: Abnormal lung exam, increased temperature TECHNIQUE: PA and Lateral views of the chest were obtained. COMPARISON: None. FINDINGS: Cardiovascular: The cardiovascular silhouette appears unremarkable except for atherosclerotic change involving the aorta. Lung Crow[place]: A 2.4 x 1.9 cm nodular density projects to the anterior lateral right middle lobe and r ight breast seen on the AP view only Pleural Spaces: No pneumothorax is identified and no effusion is evident. Osseous Structures: There is a mild dextroscoliotic curve to the thoracic spine with osteoporosis an d mild degenerative endplate changes. Soft Tissues: Bilateral breast implants are evident with calcific capsulitis. IMPRESSION: 1. A 2.4 x 1.9 cm well circumscribed nodule projects through the anterolateral right middle lobe an d right breast. If there is no palpable breast mass, correlation with a CT scan of the chest is jolie mmended. 2. Dextroscoliotic curve to the thoracic spine with osteoporosis and degenerative endplate changes. 3. Bilateral breast implants with calcific capsulitis. Findings of a nodule projecting to the lateral right middle lobe anteriorly were telephoned by Gurvinder Moore MD to Dr. Bloom on 10/26/2016 and 13:10 hours. Physician Rebecca Date Time Electronically viewed and signed by Physician Rebecca on 10/26/2016 13:14 /
[2016-10-26 19:39] VITALS: BP 145/68; RESP 18
[2016-10-26] MEDS: traZODone 50 MG TAB PO SCH (20:34)
[2016-10-26] MEDS: NACL 0.9% 3 ML SYG IV SCH (20:38)
[2016-10-26] MEDS: TEMAZEPAM 7.5 MG CAP PO SCH (22:58)
[2016-10-27] MEDS: HYDROCODONE/APAP (7.5/325) TAB PO PRN ×3 (01:10→11:54)
[2016-10-27 05:25] LABS: ADD SCAN DIFF NO
[2016-10-27 05:27] LABS: BASOPHILS % 0.2 % (0.0-2.0); EOSINOPHILS # 0.2 10^3/ul (0.0-0.5); EOSINOPHILS % 1.8 % (0.0-7.0); HEMATOCRIT 27.8 % (37.0-47.0); HEMOGLOBIN 9.4 g/dl (12.0-16.0); LYMPHOCYTES # 1.7 10^3/ul (0.8-2.9); LYMPHOCYTES % 19.9 % (15.0-51.0); MEAN CORPUSCULAR HEMOGLOBIN 33.3 pg (29.0-33.0); MEAN CORPUSCULAR HGB CONC 33.8 g/dl (32.0-37.0); MEAN CORPUSCULAR VOLUME 98.6 fl (82.0-101.0); MEAN PLATELET VOLUME 9.1 fl (7.4-10.4); MONOCYTE # 0.9 10^3/ul (0.3-0.9); MONOCYTES % 11.3 % (0.0-11.0); NEUTROPHIL # 5.5 10^3/ul (1.6-7.5); NEUTROPHILS % 66.6 % (39.0-77.0); PLATELET COUNT 197 10^3/UL (140-415); RED BLOOD COUNT 2.82 10^6/ul (4.20-5.40); RED CELL DISTRIBUTION WIDTH 13.4 % (11.5-14.5); WHITE BLOOD COUNT 8.3 10^3/ul (4.8-10.8)
[2016-10-27 05:51] LABS: POTASSIUM 3.9 mmol/L (3.5-5.1)
[2016-10-27 05:54] LABS: CREATININE 0.67 mg/dl (0.44-1.00)
[2016-10-27 05:55] LABS: CALCIUM 8.5 mg/dl (8.4-10.2)
[2016-10-27 05:56] LABS: PHOSPHORUS 4.6 mg/dl (2.5-4.9)
[2016-10-27] MEDS ORDERED: LEVOFLOXACIN 250 MG TAB PO SCH (06:00)
[2016-10-27] MEDS: PANTOPRAZOLE (EC) 40 MG TAB PO SCH (06:32)
--- NOTE | 2016-10-27 08:23 | PN ---
Date/Time of Note Date/Time of Note DATE: 10/27/16 TIME: 08:22 Assessment/Plan Lines/Catheters IV Catheter Type (from Nrsg): Saline Lock Patel in Place (from Nrsg): Yes Assessment/Plan Assessment/Plan Stable POD #4, s/p right TKA -pain meds as needed -ASA/SCDs for DVT prophylaxis -OOB with PT -dressing changed -transfer to [facility] today -follow up in the office in 1 week Subjective 24 Hr Interval Summary No acute overnight events. Pain mild, managed with PO pain meds. CXR showed well circumscribed nodule in right lower lobe. Discussed this with Dr. Bloom who thinks its likely secondary to her breast implant and can be followed up by her PMD on an outpatient basis. Stable for transfer to [facility] today. Exam/Review of Systems Vital Signs Vitals Vital Signs Date Time Temp Pulse Resp B/P Pulse Ox O2 Delivery O2 Flow Rate FiO2 10/26/16 21:33 90 21 10/26/16 21:33 89 18 10/26/16 20:10 Nasal Cannula 2.0 10/26/16 19:39 99.1 145/68 Intake and Output 10/26/16 10/26/16 10/27/16 15:00 23:00 07:00 Intake Total 850 ml 300 ml Output Total 800 ml Balance 50 ml 300 ml Exam Free Text/Dictation Dressing dry Incision clean, dry, and intact without redness or drainage Thigh soft 5/5 Quadriceps, Tibialis Anterior, EHL, Gastroc, Soleus, Peroneals Normal sensation Palpable DT/PT, CR <2 sec No distal edema Results Result Diagram: 10/27/16 0420 10/27/16 042 KELSEY NEWELL PA-C Oct 27, 2016 08:23
--- NOTE | 2016-10-27 08:28 | CONS ---
Date/Time of Note Date/Time of Note DATE: 10/27/16 TIME: 08:26 Assessment/Plan Assessment/Plan Additional Assessment/Plan 1. Doing very well post op knee replacement 2. COPD, stable 3. URI, now on levaquin 4. Anemia noted and will monitor 5. Abnl cxr, abnl prob from implant right breast, will need follow up with reg 6. OK to dc Consultation Date/Type/Reason Admit Date/Time Oct 23, 2016 at 12:28 Detailed Summary Respiratory: cough (much improved), shortness of breath Cardiovascular: No chest pain Gastrointestinal: no complaints Musculoskeletal: bone/joint pain Exam/Review of Systems Vital Signs Vitals Vital Signs Date Time Temp Pulse Resp B/P Pulse Ox O2 Delivery O2 Flow Rate FiO2 10/26/16 21:33 90 21 10/26/16 21:33 89 18 10/26/16 20:10 Nasal Cannula 2.0 10/26/16 19:39 99.1 145/68 Intake and Output 10/26/16 10/26/16 10/27/16 15:00 23:00 07:00 Intake Total 850 ml 300 ml Output Total 800 ml Balance 50 ml 300 ml Exam Neck: jvd Respiratory: clear to auscultation Cardiovascular: regular rate and rhythm Gastrointestinal: soft Extremities: No edema (and no calf tend) Results Result Diagram: 10/27/16 0420 10/27/16 0420 Results 24 hrs Laboratory Tests Test 10/27/16 04:20 White Blood Count 8.3 Red Blood Count 2.82 L Hemoglobin 9.4 L Hematocrit 27.8 L Mean Corpuscular Volume 98.6 Mean Corpuscular Hemoglobin 33.3 H Mean Corpuscular Hemoglobin Concent 33.8 Red Cell Distribution Width 13.4 Platelet Count 197 Mean Platelet Volume 9.1 Neutrophils % 66.6 Lymphocytes % 19.9 Monocytes % 11.3 H Eosinophils % 1.8 Basophils % 0.2 Nucleated Red Blood Cells % 0.0 Neutrophils # 5.5 Lymphocytes # 1.7 Monocytes # 0.9 Eosinophils # 0.2 Basophils # 0.0 Nucleated Red Blood Cells # 0.0 Sodium Level 140 Potassium Level 3.9 Chloride Level 103 Carbon Dioxide Level 27 Anion Gap 14 # Blood Urea Nitrogen 16 Creatinine 0.67 Glucose Level 107 Calcium Level 8.5 Phosphorus Level 4.6 Magnesium Level 2.0 Medications Medications Current Medications Trazodone HCl (Desyrel) 50 mg QHS PO Last administered on 10/26/16 20:34; Admin Dose 50 MG; Start 10/23/16 at 21:00 Valsartan (Diovan) 80 mg DAILY PO Last administered on 10/26/16 08:24; Admin Dose 80 MG; Start 10/24/16 at 09:00 Celecoxib (Celebrex) 200 mg DAILY PO Last administered on 10/26/16 08:24; Admin Dose 200 MG; Start 10/24/16 at 09:00 Ondansetron HCl (Zofran Inj) 4 mg Q6H PRN IV NAUSEA AND/OR VOMITING; Start at 18:30 Bisacodyl (Dulcolax Supp) 10 mg Q12H PRN [place] CONSTIPATION; Start 10/23/16 at 18: 30 Magnesium Hydroxide (Milk Of Mag) 30 ml BID PRN PO CONSTIPATION; Start at 18:30 Sodium Biphosphate/ Sodium Phosphate (Fleet Enema) 133 ml DAILY PRN [place] CONSTIPATION; Start 10/23/16 at 18:30 Docusate Sodium (Colace) 100 mg BID PO Last administered on 10/26/16 20:34; Admin Dose 100 MG; Start 10/23/16 at 21:00 Diphenhydramine HCl (Benadryl) 25 mg Q6H PRN PO PRURITUS; Start 10/23/16 at 18: 30 Aspirin (Ecotrin) 325 mg BID PO Last administered on 10/26/16 20:34; Admin Dose 325 MG; Start 10/24/16 at 09:00 Pantoprazole (Protonix Tab) 40 mg BID@06,18 PO Last administered on 10/27/16 06 :32; Admin Dose 40 MG; Start 10/24/16 at 06:00 Pregabalin (Lyrica) 50 mg BID PO Last administered on 10/26/16 20:34; Admin Dose 50 MG; Start 10/23/16 at 21:00 Fluticasone Propionate (Flonase 0.05% Nasal) 1 spray BID NASAL Last administered on 10/26/16 20:37; Admin Dose 1 SPRAY; Start 10/24/16 at 11:00 Amlodipine Besylate (Norvasc) 2.5 mg BID PO Last administered on 10/26/16 20:34 ; Admin Dose 2.5 MG; Start 10/25/16 at 11:30 Temazepam (Restoril) 7.5 mg HS PO Last administered on 10/26/16 22:58; Admin Dose 7.5 MG; Start 10/25/16 at 22:30 Guaifenesin (Mucinex) 600 mg BID PO Last administered on 10/26/16 20:34; Admin Dose 600 MG; Start 10/26/16 at 12:00 Levofloxacin (Levaquin) 250 mg DAILY@06 PO Last administered on 10/27/16 06:32 ; Admin Dose 250 MG; Start 10/27/16 at 06:00 Acetaminophen/ Hydrocodone Bitart ([place] (7.5-325)) 1 tab Q4H PRN PO PAIN; Start 10/26/16 at 13:00 Acetaminophen/ Hydrocodone Bitart ([place] (7.5-325)) 2 tab Q4H PRN PO PAIN Last administered on 10/27/16 06:32; Admin Dose 2 TAB; Start 10/26/16 at 13:00 MELISSA MONK MD Oct 27, 2016 08:28
[2016-10-27 08:59] VITALS: BP 135/76; RESP 18
[2016-10-27] MEDS: DOCUSATE SODIUM 100 MG CAP PO SCH (09:03)
[2016-10-27] MEDS: GUAIFENESIN LA 600 MG TABSR PO SCH (09:03)
[2016-10-27] MEDS: PREGABALIN 50 MG CAP PO SCH (09:03)
[2016-10-27] MEDS: ASPIRIN (EC) 325 MG TAB PO SCH (09:03)
[2016-10-27] MEDS: CELECOXIB 200 MG CAP PO SCH (09:03)
[2016-10-27] MEDS: AMLODIPINE 2.5 MG TAB PO SCH (09:04)
[2016-10-27] MEDS: VALSARTAN 80 MG TAB PO SCH (09:04)
[2016-10-27] MEDS: FLUTICASONE 0.05% 16 GM NAS SPRAY NASAL SCH (09:07)
[2016-10-27] MEDS: ALBUTEROL 0.083% (NEB) 2.5 MG/3 ML AMP HHN SCH ×2 (09:16→12:55)
[2016-10-27] MEDS: BUDESONIDE (NEB) 0.5MG/2ML AMP HHN SCH (09:28)
--- NOTE | 2016-10-28 05:01 | DS ---
DATE OF ADMISSION: 10/23/2016 DATE OF DISCHARGE: 10/27/2016 CONDITION UPON DISCHARGE: Stable. ADMITTING DIAGNOSIS: Right knee osteoarthritis. DISCHARGE DIAGNOSIS: Status post right total knee arthroplasty. PROCEDURE PERFORMED: Right total knee arthroplasty. HOSPITAL COURSE: This is a 76-year-old female who was seen in the clinic initially complaining of right knee pain. X-rays demonstrated advanced osteoarthritis of the right knee and it was thought she would benefit from a right total knee arthroplasty. On 10/23/2016, the patient was admitted and taken to the operating room where she underwent a right total knee arthroplasty. There were no intraoperative complications. The patient tolerated the procedure well. She was taken to the recovery room in stable condition. Pain was well controlled with oral pain medication. She was started on aspirin and SCDs for DVT prophylaxis. She remained hemodynamically stable and neurovascularly intact throughout her hospital stay. She began physical therapy on postoperative day 1 and was deemed stable for discharge on postoperative day 4. Prior to transfer, the incision was inspected and noted to be clean, dry and intact. Dressing changes were done prior to patient going to [facility]. LABORATORY ANALYSIS: Hemoglobin 9.4, hematocrit 27.8. Chemistry panel was within normal limits. DISCHARGE MEDICATIONS: 1. Kinsey 7.5/325 mg. 2. Tramadol 50 mg. 3. Protonix 40 mg. 4. Aspirin 325 mg. 5. Lyrica 50 mg. 6. Additionally, the patient is to resume all of her normal home medications. DISCHARGE INSTRUCTIONS: The patient will be transferred to [facility] in stable condition. She is to resume her normal diet. Activity includes weightbearing as tolerated on the surgical lower extremity. She will began physical therapy with home health. She will be discharged home with the medications noted above and is to resume all of her normal home medications. The patient is to call the office or go to the emergency room for any concerns including increased redness, swelling, drainage or fever or any concerns regarding the operation or site of incision. FOLLOWUP: The patient will need to follow up in the office in 1 week. Dictated By: KELSYE HERNÁNDEZ/BC Conf#: [id number] DID#: [id number] ANNA
== END 2016-10-27 14:40 | DRG 470 ==
LOC: REC 12:28 → MS1 20:45
PROVIDERS: ADMIT Orthopaedic Surgery; ATTEND Orthopaedic Surgery
PROC: 0SRC0J9 Replacement of Right Knee Joint with Synthetic Substitute, Cemented, Open Approach (ICD-10-PCS; principal; 2016-10-23 16:00)
DX: M17.11 Unilateral primary osteoarthritis, right knee (principal); J44.9 Chronic obstructive pulmonary disease, unspecified; D64.9 Anemia, unspecified; I10 Essential (primary) hypertension; E78.5 Hyperlipidemia, unspecified; F32.9 Major depressive disorder, single episode, unspecified; F98.8 Other specified behavioral and emotional disorders with onset usually occurring in childhood and adolescence; J06.9 Acute upper respiratory infection, unspecified
CPT/HCPCS: 71020; 73560; 80048; 81003; 83735; 84100; 85014; 85018; 85025; 86850; 86900; 86901; 86920; 87081; 87086; 88304; 88311; 94640; 94664; 97110; 97116; 97162; 97530; Z7610; C1776; C9290; J0131; J0171; J0330; J0690; J0735; J1100; J1170; J1885; J2250; J2274; J2405; J2710; J3010; J3370; J7120

== ENCOUNTER → 2016-11-03 | Outpatient (CLI) | payer MEDICARE, BC ==
[~2016-11-03] MED LIST changes: +AMPH20TA2 PO; +ASPI325T32 PO; -BUPIVACAINE LIPOSOME/PF 266 MG/20 ML VIAL INFIL ONE; -CEFAZOLIN 1 GM INJ ONE; -CELECOXIB 400 MG PO X1 DOSE PO ONE; -EXPAREL NOTE (BUPIVICAINE LIPOSOMAL) XX SCH; +GABA300C16 PO; +HYDR-905 PO; -LACTATED RINGER'S 1,000 ML IV SCH; -PAIN COCKTAIL - VANCOMYCIN IRR ONE; +PANT40TA4 PO; +PREG50CA PO; -PREGABALIN 300 MG PO X1 PO ONE; -SOD CHLORIDE 0.9% IV ONE; -SOD CHLORIDE 0.9% IVPB ONE; +TRAM50TA2 PO; -TRANEXAMIC ACID IV ONE; -TRANEXAMIC ACID IVPB ONE; +TRAZ50TA18 PO; +VALS80TA2 PO; -VANCOMYCIN 1 GM/NS 250 ML X1 BEFORE INCISION IVPB ONE; -oxyCODONE (CR) 10 MG TAB [oxyCONTIN] X1 DOSE PO ONE; -traMADOL 50 MG TAB X 1 DOSE PO ONE
--- NOTE | 2016-11-03 21:06 | HKNOTE ---
DATE OF SERVICE: 11/03/2016 INTERVAL HISTORY: The patient presents today for her first postoperative evaluation. She is 10 day s status post right total knee arthroplasty. She is doing well overall. She is at [facility]. She has been doing physical therapy aggressively and is progressing nicely. She denies any fevers or chills. She has been taking aspirin twice daily for DVT prophylaxis as rec ommended. She has also been taking pain medicine as prescribed. She presents today for her first p ostoperative evaluation. PHYSICAL EXAMINATION: On exam today, she is alert and oriented x4 in no acute distress. She is amb ulating with a front-wheel walker. Examination of the incision demonstrates to be clean, dry and in tact. There is no erythema or warmth. There is no significant soft tissue swelling. No pus or samy inage noted. Range of motion is 0 to 100 degrees. Varus and valgus forces are stable. Homans sign is negative. Compartments are soft. Neurovascular status is intact distally. IMAGING: X-rays of the right knee were obtained at [facility] and were reviewed by me today. They demonstrate good anatomic alignment with no fractures or dislocations identified. ASSESSMENT: Ten days status post right total knee arthroplasty, doing well. PLAN: The yuniel were removed today and Steri-Strips were applied. She is to continue physical th erapy at [facility]. Additionally, she is to continue aspirin 325 mg twice daily for DVT prophylax is. She is to take the pain medicine as needed. We will see her back in 4 weeks for repeat evaluat ion. If she has any concerns in the meantime, she will call the office. Dictated By: KELSEY JOSÉ for HARRY HERNÁNDEZ/BC Conf#: [id number] DID#: [id number]
== END | disposition home or self-care (01) ==
LOC: HKI 10:02
PROVIDERS: ATTEND Orthopaedic Surgery
DX: Z47.1 Aftercare following joint replacement surgery (principal); Z96.651 Presence of right artificial knee joint

== ENCOUNTER → 2016-12-01 | Outpatient (CLI) | payer MEDICARE, BC | END | disposition home or self-care (01) | LOC: HKI 10:46 | PROVIDERS: ATTEND Orthopaedic Surgery | DX: Z47.1 Aftercare following joint replacement surgery (principal); M17.11 Unilateral primary osteoarthritis, right knee; Z96.651 Presence of right artificial knee joint ==

== ENCOUNTER → 2017-02-04 | Outpatient (CLI) | payer MEDICARE, BC ==
--- NOTE | 2017-02-04 14:03 | RADRPT ---
PROCEDURE: Right knee radiographs. CLINICAL INDICATION: Right knee pain. Postop. TECHNIQUE: Three views. Weight bearing. Frontal, lateral, and patellar view. COMPARISON: 10/23/2016. FINDINGS: There is no fracture or dislocation. Anterior skin yuniel and surgical drain have been removed. There is a total right knee arthroplasty which appears satisfactory. There is no lytic or blastic lesion. There is a small joint effusion. IMPRESSION: 1. Small joint effusion. 2. Skin yuniel and surgical drain removed. 3. Otherwise unchanged postoperative appearance of the right knee. RPTAT: QQ .Jose Christianson MD, MD Date Time Electronically viewed and signed by .Jose Christianson MD, MD on 02/04/2017 14:02 .R/
== END | disposition home or self-care (01) ==
LOC: HKI 10:18
PROVIDERS: ATTEND Orthopaedic Surgery
DX: Z47.1 Aftercare following joint replacement surgery (principal); Z96.651 Presence of right artificial knee joint

== ENCOUNTER 2017-10-05 18:48 | Inpatient (IN) | END 2017-10-08 12:20 | disposition home health service (06) | DRG 372 ==